=== PATIENT | female | born 1995 | race Caucasian/White ===

== ENCOUNTER 2023-11-09 19:08 | Emergency (ER) | payer MEDICAID ==
[~2023-11-09] VITALS: Ht 162.6 cm; Wt 66.0 kg
[2023-11-09 19:12] VITALS: TEMP 97.8; O2SAT 100
[2023-11-09] MEDS ORDERED: MAGNESIUM/ALUMINUM HYDROXIDE/SIMETHICONE 30ML UDC PO STA (19:28)
[2023-11-09 20:05] LABS: BASOPHILS % 1.1 % (0.0-2.0); EOSINOPHILS % 1.8 % (0.0-5.0); HEMATOCRIT. 34.7 % (36.0-48.0); HEMOGLOBIN. 11.5 g/dL (12.0-16.0); LYMPHOCYTES % 41.3 % (20.0-50.0); MEAN CORPUSCULAR HEMOGLOBIN 29.1 pg (28.0-32.0); MEAN CORPUSCULAR HGB CONC 33.2 g/dL (31.0-37.0); MEAN CORPUSCULAR VOLUME 87.6 fL (81.0-99.0); MEAN PLATELET VOLUME 7.9 fl (7.4-10.4); MONOCYTES % 9.5 % (2.0-8.0); NEUTROPHILS % 46.3 % (40.0-76.0); PLATELET 386 x1000/uL (130-400); RED BLOOD CELL COUNT 3.96 mill/uL (4.2-5.4); RED CELL DISTRIBUTION WIDTH 15.9 % (11.6-14.6); WHITE BLOOD COUNT 8.4 x1000/uL (4.5-11.0)
[2023-11-09 20:09] LABS: CHLORIDE 106 mEq/L (98-107); POTASSIUM 4.6 mEq/L (3.5-5.1); SODIUM 137 mEq/L (136-145)
[2023-11-09 20:10] LABS: CARBON DIOXIDE 27 mEq/L (21-32)
[2023-11-09 20:15] LABS: CREATININE 0.5 mg/dL (0.6-1.0); GLUCOSE 97 mg/dL (70-105)
[2023-11-09 20:16] LABS: INR 0.9; PROTHROMBIN TIME 10.2 sec (9.6-11.0); UREA NITROGEN BLOOD 14 mg/dL (9-23)
[2023-11-09 20:19] LABS: HCG SCREEN NEGATIVE
[2023-11-09 20:54] LABS: ALANINE AMINOTRANSFERASE 22 IU/L (10-49)
[2023-11-09 20:55] LABS: ALBUMIN 4.2 g/dL (3.2-4.8); ASPARTATE AMINOTRANSFERASE 24 IU/L (<34); BILIRUBIN DIRECT < 0.1 mg/dL (<=3.0); BILIRUBIN TOTAL 0.4 mg/dL (0.1-1.0); PROTEIN TOTAL 6.6 g/dL (6.0-8.3)
[2023-11-09] MEDS ORDERED: FAMO20TA8 MT (21:27)
[2023-11-09 21:43] VITALS: BP 141/80; PULSE 88; RESP 18
[2023-11-09 21:48] LABS: CALCIUM 9.7 mg/dL (8.7-10.4)
[2023-11-09] MEDS: MAGNESIUM/ALUMINUM HYDROXIDE/SIMETHICONE 30ML UDC PO NR (21:55)
== END 2023-11-09 21:57 | disposition home or self-care (01) ==
LOC: ER 19:27
DX: R10.9 Unspecified abdominal pain (principal); F12.10 Cannabis abuse, uncomplicated
CPT/HCPCS: 36415; 80048; 80076; 84703; 85025; 99283